=== PATIENT | male | born 1945 | race Caucasian/White ===

== ENCOUNTER 2025-06-18 13:16 | Emergency (ER) | payer OTHER, SELFPAY ==
[2025-06-18 13:22] VITALS: BP 155/79
[2025-06-18 14:37] LABS: Carboxyhemoglobin 4.1 %
--- NOTE | 2025-06-18 15:52 | ED.GENMED ---
History of Present Illness
General
Chief Complaint: Exposure-Chemical
Source: patient and significant other
Exam Limitations: none
Time Seen by Provider: 06/18/25 14:44
History of Present Illness
History of Present Illness:
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
monoxide. Patient reports that his smoke detector was going off 4 days ago. Patient reports that he reset the alarm did not go off again until this morning. Patient reports that when it went off this morning he turned it off but checked the
detector and realized that the type of beeping that it was producing was indicative of of carbon monoxide. Patient called someone from his [employer] company and they came out and the home tested positive for carbon monoxide. Patient and his opened
up all the doors and windows but decided to come to the emergency department to be evaluated. Patient reports that the detector is downstairs and this is also where his sleeps. He reports she has been having symptoms including headache and
nausea. However he denies any symptoms such as headache, dizziness, nausea, vomiting, abdominal pain and states that he feels well.
Past History
Past History
ED Past Medical History: HTN and Hypercholesterolemia
ED Past Surgical History: None
Social History
Tobacco: Former smoker
Alcohol: None
Review of Systems
Review of Systems
Allergies reviewed?: Yes
All Other Systems: Not applicable
Constitutional: Reports no symptoms
EENT: Reports no symptoms
Respiratory: Reports no symptoms
Cardiac: Reports no symptoms
ABD/GI: Reports no symptoms
: Reports no symptoms
Musculoskeletal: Reports no symptoms
Skin: Reports no symptoms
Neurological: Reports no symptoms
Endocrine: Reports no symptoms
Hematologic/Lymphatic: Reports no symptoms
Psychiatric: Reports no symptoms
Phy Exam
General Physical Exam
General Presentation: well appearing and no apparent distress
General Skin: warm and dry
General Habitus: normal
General Mental: alert
General Hydration: appears well hydrated
ENT Exam
ENT Exam: EOMI, pharynx normal, neck supple and normocephalic
Eye Exam
Eye Exam: PERRL, cornea clear and conjunctiva normal
Cardiovascular Exam
Cardiovascular Exam: regular rate/rhythm, no edema, no murmur and normal peripheral pulses
Pulmonary Exam
Pulmonary Exam: lungs clear, no respiratory distress, no rales, no crackles, no rhonchi, no stridor, no wheezing and no cough
Neurological Exam
Neurological Exam: alert, oriented x3, no motor deficits and speech normal
Musculoskeletal Exam
Musculoskeletal Exam: full ROM and no edema
Skin Exam
Skin Exam: normal color, warm/dry, no rash and no petechia
Psychiatric Exam
Psychiatric Exam: normal mood/affect
Course
Orders/Labs/Results
Orders:
Orders
06/18/25 14:25
Carboxyhemoglobin Urgent
Vital Signs
Initial and Last Documented VS:
Initial Vital Signs
Temp Pulse Resp BP Pulse Ox
98.3 F 75 16 155/79 96
06/18/25 13:22 06/18/25 13:22 06/18/25 13:22 06/18/25 13:22 06/18/25 13:22
Last Documented Vital Signs
Temp Pulse Resp BP Pulse Ox
98.3 F 75 16 155/79 96
06/18/25 13:22 06/18/25 13:22 06/18/25 13:22 06/18/25 13:22 06/18/25 15:52
*Pulse Oximetry
SaO2: 96
Oxygen Mode of Delivery: Room air
Patient hypoxic: no
*Critical Care Note
Total Time (30-74mins, 75-104mins- exclusive of procedures): Not Applicable
Update Note
Update Note:
80-year-old male presents emergency department for possible carbon monoxide exposure at his home. Patient called the [employer] people and they detected carbon oxide and turned off their propane fuel heater which was thought to be the cause of the carbon
oxide. Triage note indicates the patient was feeling dizzy which she currently denies to me. Patient denies any recent symptoms and states that he feels well. Patient reports that he is a non-smoker. On arrival, patient is moderately
hypertensive, afebrile. On examination, the patient is well-appearing, he is in no acute distress, he has a normal cardiopulmonary exam. Carboxyhemoglobin slightly elevated at 4.1. Case was discussed with ED attending, no indication for further
intervention at this time. I did recommend to the patient that he contact the fire department so that they can ensure that his dwelling is safe for him to inhabit. I offered to call the fire department for him from the emergency department.
Patient declined stating that he would prefer to do it himself. Patient is safe for discharge to home with strict return precautions. He expressed understanding of the plan and agreed.
ED Attending Note
-
Portions of this chart may have been created with voice recognition software.� Occasional wrong word or��sound alike� substitutions may have occurred due to the inherent limitations of voice recognition software.
Discharge Plan
Departure
Patient Disposition: Home (Routine Discharge)
Date of Disposition: 06/18/25
Time of Disposition: 15:52
Patient with high blood pressure during this ER visit?: Yes
Condition: Good
Covid-19: Not Applicable
Discharge Problem:
Accidental exposure to carbon monoxide
Instructions: Carbon Monoxide Poisoning (DC)
Prescriptions:
No Action
lisinopril 20 mg tablet
20 mg PO DAILY
amlodipine 5 mg tablet
5 mg PO DAILY
gabapentin 100 mg capsule
200 - 300 mg PO HS
metoprolol succinate 25 mg tablet extended release 24 hr
25 mg PO BID
stdygaxxq-XET-LK-acetaminophen 7.5-60-30-1,000 mg/30 mL Liquid
15 ml PO HS
tamsulosin [Flomax] 0.4 mg Capsule
0.8 mg PO HS
Rx Instructions:
with dinner
melatonin 5 mg Tablet
5 mg PO HS
PreserVision AREDS 2,148 mcg-113 mg-45 mg-17.4mg Tablet
1 tab PO BID
coQ10 (ubiquinol) 100 mg Capsule
300 mg PO HS
turmeric 400 mg Capsule
400 mg PO DAILY
thiamine HCl (vitamin B1) 100 mg Tablet
100 mg PO BID Qty: 60 0RF
clopidogrel 75 mg Tablet
75 mg PO DAILY Qty: 19 0RF
aspirin 81 mg Tablet,Chewable
81 mg PO DAILY Qty: 30 0RF
folic acid 1 mg Tablet
1 mg PO DAILY Qty: 30 0RF
rosuvastatin 40 mg Tablet
40 mg PO QPM Qty: 30 0RF
Referrals:
Josué Vincent MD [Family Provider, Family Practice]
Activity Restrictions/Additional Instructions:
You were seen in the emergency department after possible exposure to carbon oxide. Your levels were not dangerously elevated today. We do recommend that you contact the fire department upon leaving the emergency department to have them evaluate
your home and to make sure that it is safe for you to inhabit. In the meantime, please return to the emergency department if you develop worsening headache, dizziness, if you pass out or feel you are in a pass out, if you have persistent nausea,
vomiting, or for any other worsening or concerning symptoms.
Interventions
Interventions:
*Risk Screen - Suicide Last Done: 06/18/25 13:22
*General Assessment Last Done: 06/18/25 14:53
*Neglect/Abuse Screening Last Done: 06/18/25 13:22
*ED COVID-19 Vaccine History Last Done: 06/18/25 14:53
*ED Influenza Vaccine History Last Done: 06/18/25 14:53
[facility] Risk Assessment Tool Last Done: 06/18/25 14:53
*Nursing Disposition Last Done: 06/18/25 16:00
ED- Pulmonary Assessment Last Done: 06/18/25 14:53
ED-Skin Assessment Last Done: 06/18/25 14:53
Discharge Date and Time
Discharge Date/Time: 06/18/25 16:02
Print Language: [place]
== END 2025-06-18 16:02 | disposition home or self-care (01) ==
LOC: EMR 13:16
PROVIDERS: EMERGENCY PHYSICIAN Emergency Medicine; FAMILY PHYSICIAN Family Medicine
DX: T58.11XA Toxic effect of carbon monoxide from utility gas, accidental (unintentional), initial encounter (principal); R11.0 Nausea; R51.9 Headache, unspecified; Y92.009 Unspecified place in unspecified non-institutional (private) residence as the place of occurrence of the external cause; E78.00 Pure hypercholesterolemia, unspecified; I10 Essential (primary) hypertension; Z86.73 Personal history of transient ischemic attack (TIA), and cerebral infarction without residual deficits; Z87.891 Personal history of nicotine dependence
CPT/HCPCS: 99283; 82375